=== PATIENT | female | born 1960 | race Caucasian/White ===

== ENCOUNTER 2024-03-20 13:25 | Outpatient (RCR) | payer BC, SELFPAY ==
[2024-03-20 13:30] VITALS: BP 112/52
[2024-03-20] MEDS: RECLAST 100 IV (13:45)
== END 2024-03-23 09:25 | disposition home or self-care (01) ==
LOC: OID 13:25
PROVIDERS: ATTENDING PHYSICIAN Internal Medicine; FAMILY PHYSICIAN Internal Medicine
DX: M81.0 Age-related osteoporosis without current pathological fracture (principal)
CPT/HCPCS: 96365; J3489

== ENCOUNTER 2025-04-29 10:34 | Outpatient (RCR) | payer MEDICARE, OTHER, SELFPAY ==
[2025-04-29] MEDS: RECLAST 100 IV (11:16)
[2025-04-29 11:25] VITALS: BP 115/56
== END 2025-04-30 10:50 | disposition home or self-care (01) ==
LOC: OID 10:34
PROVIDERS: ATTENDING PHYSICIAN Internal Medicine; FAMILY PHYSICIAN Internal Medicine
DX: M81.0 Age-related osteoporosis without current pathological fracture (principal)
CPT/HCPCS: 96365; J3489